=== PATIENT | male | born 1965 | race Caucasian/White ===

== ENCOUNTER → 2020-02-20 11:12 | Outpatient (BNVA) | payer BC, SELFPAY | PROVIDERS: Family Provider Nurse Practitioner Family; PCP Nurse Practitioner Family; Visit Provider Nurse Practitioner Family | DX: I10 Essential (primary) hypertension (principal); E03.9 Hypothyroidism, unspecified; M10.9 Gout, unspecified; E78.2 Mixed hyperlipidemia; R73.09 Other abnormal glucose; Z12.5 Encounter for screening for malignant neoplasm of prostate; E55.9 Vitamin D deficiency, unspecified; M19.90 Unspecified osteoarthritis, unspecified site | CPT/HCPCS: 80053; 80061; 81001; 81003; 82306; 83036; 84153; 84443; 84550; 85025 ==

== ENCOUNTER → 2020-02-21 11:22 | Outpatient (BNVA) | payer BC, SELFPAY | PROVIDERS: Family Provider Nurse Practitioner Family; PCP Nurse Practitioner Family; Visit Provider Nurse Practitioner Family | DX: I10 Essential (primary) hypertension (principal) | CPT/HCPCS: 81001 ==

== ENCOUNTER → 2020-05-06 16:29 | Outpatient (BNVA) | payer BC, SELFPAY | PROVIDERS: Family Provider Nurse Practitioner Family; PCP Nurse Practitioner Family; Visit Provider Nurse Practitioner Family | DX: E11.9 Type 2 diabetes mellitus without complications (principal); M1A.49X0 Other secondary chronic gout, multiple sites, without tophus (tophi); E03.9 Hypothyroidism, unspecified | CPT/HCPCS: 83036; 84443; 84550 ==

== ENCOUNTER → 2021-01-14 08:55 | Outpatient (BNVA) | payer SELFPAY | PROVIDERS: Family Provider Nurse Practitioner Family; PCP Nurse Practitioner Family; Referring Provider Nurse Practitioner Family; Visit Provider Nurse Practitioner Family | DX: Z01.89 Encounter for other specified special examinations (principal) | CPT/HCPCS: 36415 ==

== ENCOUNTER → 2021-04-29 11:15 | Outpatient (BNVA) | payer BC, SELFPAY | PROVIDERS: Family Provider Nurse Practitioner Family; PCP Nurse Practitioner Family; Visit Provider Nurse Practitioner Family | DX: E11.9 Type 2 diabetes mellitus without complications (principal); I10 Essential (primary) hypertension; E03.9 Hypothyroidism, unspecified; M1A.49X0 Other secondary chronic gout, multiple sites, without tophus (tophi); E55.9 Vitamin D deficiency, unspecified; E78.2 Mixed hyperlipidemia; L97.929 Non-pressure chronic ulcer of unspecified part of left lower leg with unspecified severity; R60.9 Edema, unspecified; R60.1 Generalized edema; Z12.5 Encounter for screening for malignant neoplasm of prostate; I83.029 Varicose veins of left lower extremity with ulcer of unspecified site | CPT/HCPCS: 80053; 80061; 81003; 82306; 83036; 83880; 84443; 84550; 85025; G0103 ==

== ENCOUNTER 2021-04-30 13:49 | Outpatient (CLI) | payer BC, SELFPAY | END 2021-04-30 13:50 | disposition home or self-care (01) | LOC: WOUND 13:50 | PROVIDERS: Family Provider Nurse Practitioner Family; PCP Nurse Practitioner Family; Visit Provider Thoracic Surgery (Cardiothoracic Vascular Surgery) | DX: E11.622 Type 2 diabetes mellitus with other skin ulcer (principal); L97.822 Non-pressure chronic ulcer of other part of left lower leg with fat layer exposed | CPT/HCPCS: 11042; G0463 ==

== ENCOUNTER 2021-05-14 14:57 | Outpatient (CLI) | payer BC, SELFPAY | END 2021-05-14 14:58 | disposition home or self-care (01) | LOC: WOUND 14:58 | PROVIDERS: Family Provider Nurse Practitioner Family; PCP Nurse Practitioner Family; Visit Provider Thoracic Surgery (Cardiothoracic Vascular Surgery) | DX: Z09 Encounter for follow-up examination after completed treatment for conditions other than malignant neoplasm (principal) | CPT/HCPCS: 99212 ==

== ENCOUNTER → 2021-05-22 14:35 | Outpatient (BNVA) | payer BC, SELFPAY | PROVIDERS: Family Provider Nurse Practitioner Family; PCP Nurse Practitioner Family; Visit Provider Internal Medicine Cardiovascular Disease | DX: I50.9 Heart failure, unspecified (principal); E03.9 Hypothyroidism, unspecified | CPT/HCPCS: 80048; 80053; 83735; 83880; 84443 ==

== ENCOUNTER 2021-06-05 12:36 | Outpatient (CLI) | payer BC, SELFPAY ==
--- NOTE | 2021-06-05 12:42 | USCV_ITS ---
Farhad Petty Age: 55 Gender: M : 1965 Exam Date: 06/05/2021 12:53 Ordering Phys: Leo Mota MD (Andy) ([email or web address]) Technologist: RIC [place]am [place] [facility] [place]: HISTORY: Lower extremity pain. PROCEDURES: FINDINGS: TDS DUE TO BODY HABITUS. NO REFLUX SEEN AT THIS TIME ALL VEINS IMAGED APPEAR COMPRESSIBLE AND FREE OF THROMBUS WHERE VISUALIZED. The veins were found to be easily compressible with spontaneous blood flow. Non pulsatile flow pattern. CONCLUSIONS No evidence of DVT in the above-mentioned identifiable veins. No significant venous reflux is noted either in the deep or in the superficial veins mentioned above. Technically difficult study because of the patient's body habitus Dr Bertha Ramirez MD [facility] (Electronically Signed) Final Date: 06 June 2021 15:54 S
== END 2021-06-05 12:37 | disposition home or self-care (01) ==
LOC: US 12:37
PROVIDERS: PCP Nurse Practitioner Family; Visit Provider Thoracic Surgery (Cardiothoracic Vascular Surgery)
DX: E11.621 Type 2 diabetes mellitus with foot ulcer (principal); M79.604 Pain in right leg; M79.605 Pain in left leg
CPT/HCPCS: 93970

== ENCOUNTER 2021-06-10 14:24 | Outpatient (CLI) | payer BC, SELFPAY ==
--- NOTE | 2021-06-10 14:28 | USCV_ITS ---
Farhad Petty Age: 55 Gender: M : 1965 Exam Date: 06/10/2021 14:48 Ordering Phys: Leo Mota MD (Andy) ([email or web address] [email or web address] Technologist: Susy Zhou [place] [facility] [place]: AFIB BP: 120 / 80 HR: 99 Rhythm: Atrial fibrillation Technical Quality: Technically difficult study MEASUREMENTS (Male / Female) Normal Values 2D ECHO LV Diastolic Diameter PLAX 4.4 cm 4.2 - 5.9 / 3.9 - 5.3 cm LV Systolic Diameter PLAX 3.0 cm IVS Diastolic Thickness 1.5 cm 0.6 - 1.0 / 0.6 - 0.9 cm IVS Systolic Thickness 1.9 cm LVPW Diastolic Thickness 1.6 cm 0.6 - 1.0 / 0.6 - 0.9 cm LVPW Systolic Thickness 2.1 cm LVOT Diameter 2.0 cm LV Ejection Fraction 2D Teich 58.7 % LA Diameter 4.2 cm Aorta at Sinotubular Diameter 2.5 cm DOPPLER TR Peak Velocity 219.0 cm/s TR Peak Gradient 19.2 mmHg TV Peak E Velocity 83.0 cm/s Right Atrial Pressure 3.0 mmHg Pulmonary Artery Systolic Pressu 22.2 mmHg PV Peak Velocity 129.0 cm/s RV Acceleration Time 0.1 s RV Ejection Time 0.3 s RV AcT/ET 0.2 FINDINGS Left Ventricle Normal left ventricular cavity size. Normal left ventricular systolic function. No regional wall motion abnormalities. Left ventricular ejection fraction is estimated at 55 %. Right Ventricle The right ventricle is normal in size and function. RVSP could not be calculated due to incomplete tricuspid regurgitation velocity profile. Right Atrium The right atrium is normal in size. Left Atrium The left atrium is normal in size. Mitral Valve Moderately thickened mitral valve. No mitral valve stenosis. No mitral valve regurgitation. Aortic Valve Aortic valve sclerosis without stenosis or regurgitation. Tricuspid Valve Structurally normal tricuspid valve without significant stenosis or regurgitation. Pulmonary artery systolic pressure is normal. Pulmonic Valve Structurally normal pulmonic valve without significant stenosis. There is no pulmonic regurgitation. Pericardium Normal pericardium without effusion. Aorta Normal ascending aorta dimension. CONCLUSIONS 1-Normal left ventricular cavity size. Normal left ventricular systolic function. No regional wall motion abnormalities. Left ventricular ejection fraction is estimated at 55 %. 2-There is no pericardial effusion. 3-No significant valve abnormalities. 4-There are no prior echocardiogram studies to compare. Kaylyn Catalan MD (Electronically Signed) Final Date: 10 June 2021 17:24 S
== END 2021-06-10 14:25 | disposition home or self-care (01) ==
LOC: US 14:26
PROVIDERS: PCP Nurse Practitioner Family; Visit Provider Thoracic Surgery (Cardiothoracic Vascular Surgery)
DX: I48.91 Unspecified atrial fibrillation (principal)
CPT/HCPCS: 93306

== ENCOUNTER → 2021-07-02 08:56 | Outpatient (BNVA) | payer BC, SELFPAY | PROVIDERS: PCP Nurse Practitioner Family; Visit Provider Internal Medicine Cardiovascular Disease | DX: I50.9 Heart failure, unspecified (principal); R60.9 Edema, unspecified | CPT/HCPCS: 80048; 83735; 83880 ==

== ENCOUNTER → 2023-06-18 10:08 | Outpatient (BNVA) | payer BC, SELFPAY | PROVIDERS: PCP Nurse Practitioner; Visit Provider Nurse Practitioner | DX: E11.9 Type 2 diabetes mellitus without complications (principal); Z12.5 Encounter for screening for malignant neoplasm of prostate | CPT/HCPCS: 80053; 80061; 83036; 84443; 85025; G0103 ==

== ENCOUNTER → 2024-02-03 09:33 | Outpatient (BNVA) | payer BC, SELFPAY | PROVIDERS: PCP Nurse Practitioner Family; Visit Provider Nurse Practitioner Family | DX: I11.0 Hypertensive heart disease with heart failure (principal); I50.9 Heart failure, unspecified; I48.20 Chronic atrial fibrillation, unspecified; E11.9 Type 2 diabetes mellitus without complications; E03.9 Hypothyroidism, unspecified; E55.9 Vitamin D deficiency, unspecified; M1A.49X0 Other secondary chronic gout, multiple sites, without tophus (tophi) | CPT/HCPCS: 80053; 80061; 81003; 83036; 83735; 84439; 84443; 84550; 85025; 93005 ==

== ENCOUNTER → 2025-09-06 16:20 | Outpatient (BNVA) | payer BC, SELFPAY | PROVIDERS: PCP Nurse Practitioner Family; Visit Provider Nurse Practitioner Family | DX: I10 Essential (primary) hypertension (principal); E11.9 Type 2 diabetes mellitus without complications; E03.9 Hypothyroidism, unspecified; E55.9 Vitamin D deficiency, unspecified; Z68.43 Body mass index [BMI] 50.0-59.9, adult | CPT/HCPCS: 80053; 80061; 81003; 82306; 83036; 84443; 85025; G0103 ==